=== PATIENT | male | born 1950 | race African-American/Black ===

== ENCOUNTER 2018-05-19 10:00 | Emergency (ER) | payer OTHER ==
[2018-05-19 10:13] VITALS: BP 130/70
--- NOTE | 2018-05-19 10:53 | ER Document Report ---
ED Hand/Wrist Injury - General Chief Complaint: Hand Pain Stated Complaint: FINGER INJURY Time Seen by Provider: 05/19/18 10:38 Mode of Arrival: Ambulatory Information source: Patient Notes: Patient is a 67-year-old male comes emergency room by being sent from [facility] for a avulsion laceration of the left ring finger pad and nail. Patient states that he was using a mandolin cutting vegetables yesterday evening around 8 PM and he did not have the hand guard and accidentally pushed too hard with the left hand and he took off a portion of the left ring finger pad and nail tip. He denies any other injuries and just received a tetanus shot from the [facility] about an hour ago. TRAVEL OUTSIDE OF THE [place] IN LAST 30 DAYS: No - HPI Injury to: Ring finger Onset: Yesterday Where: Home Timing: Constant Quality of pain: Achy Severity: Mild Pain Level: 1 Context: Laceration - Related Data Allergies/Adverse Reactions: No Known Allergies Allergy (Unverified 05/19/18 10:04) Past Medical History - General Information source: Patient - Social History Smoking Status: Never Smoker Cigarette use (# per day): No Chew tobacco use (# tins/day): No Smoking Education Provided: No Frequency of alcohol use: None Drug Abuse: None Family History: Reviewed & Not Pertinent Patient has suicidal ideation: No Patient has homicidal ideation: No - Past Medical History Cardiac Medical History: Reports: Hx Hypercholesterolemia, Hx Hypertension Endocrine Medical History: Reports: Hx Diabetes Mellitus Type 2 Renal/ Medical History: Denies: Hx Peritoneal Dialysis Review of Systems - Review of Systems Constitutional: No symptoms reported EENT: No symptoms reported Cardiovascular: No symptoms reported Respiratory: No symptoms reported Gastrointestinal: No symptoms reported Genitourinary: No symptoms reported Male Genitourinary: No symptoms reported Musculoskeletal: No symptoms reported Skin: Other - Laceration Hematologic/Lymphatic: No symptoms reported Neurological/Psychological: No symptoms reported -: Yes All other systems reviewed and negative Physical Exam - Vital signs Vitals: Temp Pulse Resp BP Pulse Ox 98.2 F 50 L 16 130/70 H 96 05/19/18 10:10 05/19/18 10:10 05/19/18 10:10 05/19/18 10:10 05/19/18 10:10 Interpretation: Bradycardic - Notes Notes: PHYSICAL EXAMINATION: GENERAL: This is a well-nourished well-developed 67-year-old male who is in no apparent distress on, physical examination. HEAD: Atraumatic, normocephalic. EYES: Pupils equal round and reactive to light, extraocular movements intact, sclera anicteric, conjunctiva are normal. NECK: Normal range of motion, supple LUNGS: Breath sounds clear to auscultation bilaterally and equal. No wheezes rales or rhonchi. HEART: Bradycardic rate and rhythm without murmurs ABDOMEN: Musculoskeletal: The area of concern is patient's left index finger distal tip on the lateral side of the pad and nail. Patient has a avulsion laceration caused by a mandolin which a sliced off portion of the vascular bed on the fingertip pad area. Bleeding is controlled currently. A slight portion of the distal nail tip has been avulsed as well but does not appear to be into the nail bed. The vascular bed that is exposed is not able to suture together will need prophylactic treatment with Surgicel. NEUROLOGICAL: Normal speech, normal gait. Normal sensory, motor exams PSYCH: Normal mood, normal affect. SKIN: Warm, Dry, normal turgor, no rashes or lesions noted. Course - Re-evaluation Re-evalutation: 05/19/18 12:06 And x-rays performed just to make sure there was no fracture of the distal tip of the tuft of the finger. I did not see bone on my examination but felt it was completed we were to add the x-ray. X-ray is negative for any kind of a fracture. At this time will patient's been sent home with Surgicel on top told to keep it there 48 hours then to remove it by soaking very generously and peeling very easily off. I have informed him that it turns to the skin top pitch black in as a normal finding after he gets off the Surgicel he can apply Band-Aid and some antibiotic ointment and finish his oral antibiotics. - Vital Signs Vital signs: Temp Pulse Resp BP Pulse Ox 98.2 F 50 L 16 130/70 H 96 05/19/18 10:10 05/19/18 10:10 05/19/18 10:10 05/19/18 10:10 05/19/18 10:10 Discharge - Discharge Clinical Impression: Laceration of finger Qualifiers: Encounter type: initial encounter Finger: ring finger Damage to nail status: with damage Foreign body presence: without foreign body Laterality: left Qualified Code(s): S61.315A - Laceration without foreign body of left ring finger with damage to nail, initial encounter Condition: Stable Disposition: HOME, SELF-CARE Instructions: Laceration Care ([facility]), Soap Cleansing ([facility]) Additional Instructions: As we discussed leave this dressing on for 48 hours. After 48 hours you can remove it by soaking very generously in water and then peeling very easily off. You will find the tip where you took off the skin will be pitch black that is normal finding. You may rinse in warm soapy water and apply antibiotic ointment and Band-Aid for the rest of the time. I am placing you on some oral antibiotics to cover the exposed area that has been there for the last several hours. Please take all the antibiotics. Also if you should have any concerns that it does not appear to be healing appropriately return to ER for a recheck. Prescriptions: Cephalexin Monohydrate [Keflex 500 mg Capsule] 500 mg PO Q6H 7 Days #28 capsule Forms: Return to Work [facility]errals[facility] [[facility]] - Follow up as needed
--- NOTE | 2018-05-19 11:56 | RADIOLOGY REPORT (SQ) ---
EXAM DESCRIPTION: FINGER LEFT COMPLETED DATE/TIME: 05/19/2018 11:16 am REASON FOR STUDY: Mandolin laceration fingertip COMPARISON: None. NUMBER OF VIEWS: Three views. TECHNIQUE: AP, lateral, and oblique images acquired of the left fourth finger. LIMITATIONS: None. FINDINGS: MINERALIZATION: Normal. BONES: No acute fracture or dislocation. No worrisome bone lesions. SOFT TISSUES: No soft tissue swelling. No foreign body. OTHER: No other significant finding. IMPRESSION: No significant findings. TECHNICAL DOCUMENTATION: JOB ID: [id number] [employer] [employer]- All Rights Reserved Reading location - IP/workstation name: [email or web address]
== END 2018-05-19 12:28 | disposition home or self-care (01) ==
LOC: ER 10:00
DX: S61.315A Laceration without foreign body of left ring finger with damage to nail, initial encounter (principal); M79.642 Pain in left hand; W27.4XXA Contact with kitchen utensil, initial encounter; Y93.G1 Activity, food preparation and clean up; I10 Essential (primary) hypertension; E11.9 Type 2 diabetes mellitus without complications
CPT/HCPCS: 99283

== ENCOUNTER 2019-12-02 07:19 | Emergency (ER) | payer OTHER, MEDICARE ==
--- NOTE | 2019-12-02 07:35 | ER Document Report ---
ED Medical Screen (RME) - General Chief Complaint: Weakness Stated Complaint: LEFT FACE NUMBNESS/ARM NUMBNESS Time Seen by Provider: 12/02/19 07:33 Primary Care Provider: GINGER BOSE [Primary Care Provider] - Follow up as needed Notes: 69-year-old male with chief complaint of left arm and left leg weakness and numbness that started last night while he was asleep. He states he went to bed at approximately midnight, he states he awoke at around 3 AM and he noticed the weakness in his arm. He states that this intermittently awoke him until he came in for evaluation now at approximately 7:30 AM. He denies headache, he denies any other complaints. History of hypertension, hyperlipidemia, type 2 diabetes TRAVEL OUTSIDE OF THE [place] IN LAST 30 DAYS: No - Related Data Allergies/Adverse Reactions: No Known Allergies Allergy (Unverified 05/19/18 10:04) Past Medical History - Social History Chew tobacco use (# tins/day): No Frequency of alcohol use: None Drug Abuse: None - Past Medical History Cardiac Medical History: Reports: Hx Hypercholesterolemia, Hx Hypertension Endocrine Medical History: Reports: Hx Diabetes Mellitus Type 2 Renal/ Medical History: Denies: Hx Peritoneal Dialysis Physical Exam - Vital signs Vitals: Temp 97.6 F 12/02/19 07:23 - Neurological Orientation: AAOx4 [place] Coma Scale Eye Opening: Spontaneous [place] Coma Scale Verbal: Oriented [place] Coma Scale Motor: Obeys Commands [place] Coma Scale Total: 15 Speech: Normal Cranial nerves: Normal Motor strength normal: RUE, RLE. 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 Sending to CAT scan immediately I have greeted and performed a rapid initial assessment of this patient. A comprehensive ED assessment and evaluation of the patient, analysis of test results and completion of the medical decision making process will be conducted by additional ED providers. - Vital Signs Vital signs: Temp Pulse Resp BP Pulse Ox 97.6 F 12/02/19 07:23 Doctor's Discharge - Discharge Referrals: LIDYA,GINGER [Primary Care Provider] - Follow up as needed
--- NOTE | 2019-12-02 07:57 | RADIOLOGY REPORT (SQ) ---
EXAM DESCRIPTION: XR CHEST 1 VIEW COMPLETED DATE/TME: 12/02/2019 07:33 CLINICAL HISTORY: 69 years, Male, left arm and leg weakness, CVA COMPARISON: None. NUMBER OF VIEWS: One TECHNIQUE: Upright AP view of the chest LIMITATIONS: None. FINDINGS: The lungs are clear. The heart is normal in size. There is no pneumothorax or pleural effusion. There is no intraperitoneal free air. There is no acute fracture. IMPRESSION: No acute cardiopulmonary abnormality. copyright 2010 [employer]- All Rights Reserved
--- NOTE | 2019-12-02 07:58 | RADIOLOGY REPORT (SQ) ---
EXAM: CT Head Without Intravenous Contrast EXAM DATE/TIME: 12/02/2019 07:36 CLINICAL HISTORY: The patient is 69 years old and is Male; left arm and leg weakness, CVA TECHNIQUE: Axial computed tomography images of the head/brain without intravenous contrast. Sagittal and coronal reformatted images were created and reviewed. This CT exam was performed using one or more of the following dose reduction techniques: automated exposure control, adjustment of the mA and/or kV according to patient size, and/or use of iterative reconstruction technique. COMPARISON: No relevant prior studies available. FINDINGS: BRAIN: Unremarkable. No obvious signs of acute infarct. No evidence of intracranial mass. No acute hemorrhage. VENTRICLES: Unremarkable. No ventriculomegaly. BONES/JOINTS: Unremarkable. No acute fracture. SOFT TISSUES: Unremarkable. SINUSES: Unremarkable as visualized. No acute sinusitis. MASTOID AIR CELLS: Unremarkable as visualized. No mastoid effusion. IMPRESSION: No acute intracranial findings.
[2019-12-02 08:01] LABS: ABSOLUTE EOSINOPHILS # (AUTO) 0.4 10^3/uL (0.0-0.6); ABSOLUTE LYMPHOCYTES (AUTO) 2.4 10^3/uL (0.5-4.7); ABSOLUTE MONOCYTES (AUTO) 0.6 10^3/uL (0.1-1.4); BASOPHILS % (AUTO) 0.9 % (0-2); EOSINOPHILS % (AUTO) 6.9 % (0-6); LYMPHOCYTES % (AUTO) 44.3 % (13-45); MEAN CORPUSCULAR HEMOGLOBIN 29.3 pg (27.0-33.4); MEAN CORPUSCULAR HGB CONC 35.7 g/dL (32.0-36.0); MEAN CORPUSCULAR VOLUME 82 fl (80-97); MONOCYTES % (AUTO) 11.4 % (3-13); PLATELET COUNT 212 10^3/uL (150-450); RED BLOOD COUNT 5.12 10^6/uL (4.35-5.55); RED CELL DISTRIBUTION WIDTH 15.5 % (11.5-14.0); SEGMENTED NEUTROPHILS % (AUTO) 36.5 % (42-78); TOTAL CELLS COUNTED % (AUTO) 100 %; WHITE BLOOD COUNT 5.4 10^3/uL (4.0-10.5)
[2019-12-02 08:08] LABS: INTERNATIONAL RATION (INR) 0.95; PARTIAL THROMBOPLASTIN TIME 27.8 SEC (23.5-35.8)
[2019-12-02 08:09] LABS: PROTHROMBIN TIME 12.7 SEC (11.4-15.4)
[2019-12-02 08:22] LABS: ALBUMIN 4.2 g/dL (3.5-5.0); ALKALINE PHOSPHATASE 55 U/L (38-126); ANION GAP 7 (5-19); ASPARTATE AMINO TRANSFERASE 25 U/L (17-59); BILIRUBIN,TOTAL 0.8 mg/dL (0.2-1.3); BLOOD UREA NITROGEN 19 mg/dL (7-20); CALCIUM 9.5 mg/dL (8.4-10.2); CARBON DIOXIDE 30 mmol/L (22-30); CHLORIDE 102 mmol/L (98-107); CREATINE KINASE 200 U/L (55-170); GLUCOSE 118 mg/dL (75-110); POTASSIUM 3.4 mmol/L (3.6-5.0); TOTAL PROTEIN 7.5 g/dL (6.3-8.2)
[2019-12-02 08:34] LABS: CREATINE KINASE MB 2.81 ng/mL (<4.55)
[2019-12-02 08:35] LABS: TROPONIN I < 0.012 ng/mL
--- NOTE | 2019-12-02 09:01 | ER Document Report ---
Entered by GAYATHRI MCCARTY SCRIBE 12/02/19 0811 Acting as scribe for:LAURA PATTERSON MD ED Neuro Symptoms/Deficit - General Chief Complaint: Weakness Stated Complaint: LEFT FACE NUMBNESS/ARM NUMBNESS Time Seen by Provider: 12/02/19 07:33 [facility] - Follow up as needed Mode of Arrival: Ambulatory Information source: Patient Notes: This 69 year old male patient presents to the emergency department today with complaints of left sided numbness, weakness, and altered sensation. Patient states he first noticed that his left shoulder "felt funny, like he slept on it wrong" when he woke up this morning. Patient also mentions that he has had numbness and tingling on the left side of his face around his eyes and lips, stating it felt like "[id number]". Patient states this is still present now but decreased from earlier. Patient states when he tried to walk he also noticed that he could barely move his left lower extremity. TRAVEL OUTSIDE OF THE [place] IN LAST 30 DAYS: No - Related Data Allergies/Adverse Reactions: No Known Allergies Allergy (Unverified 05/19/18 10:04) Past Medical History - General Information source: Patient - Social History Smoking Status: Never Smoker Cigarette use (# per day): No Chew tobacco use (# tins/day): No Frequency of alcohol use: None Drug Abuse: None Lives with: Spouse/Significant other Family History: Reviewed & Not Pertinent Patient has homicidal ideation: No - Past Medical History Cardiac Medical History: Reports: Hx Hypercholesterolemia, Hx Hypertension Past Surgical History: Reports: Hx Tonsillectomy, Other - Jaclyn fundoplication Review of Systems - Review of Systems Constitutional: No symptoms reported EENT: No symptoms reported Cardiovascular: No symptoms reported Respiratory: No symptoms reported Gastrointestinal: No symptoms reported Genitourinary: No symptoms reported Male Genitourinary: No symptoms reported Musculoskeletal: No symptoms reported Skin: No symptoms reported Hematologic/Lymphatic: No symptoms reported Neurological/Psychological: See HPI, Sensory change, Weakness - left sided, Numbness - left sided -: Yes All other systems reviewed and negative Physical Exam - Vital signs Vitals: Temp Pulse Resp BP Pulse Ox 97.6 F 61 18 166/85 H 98 12/02/19 07:23 12/02/19 07:23 12/02/19 07:23 12/02/19 07:23 12/02/19 07:23 - Notes Notes: Physical Exam: General: Alert, appears well. HEENT: Normocephalic. Atraumatic. PERRL. Extraocular movements intact. Oropharynx clear. Neck: Supple. Non-tender. Respiratory: No respiratory distress. Clear and equal breath sounds bilaterally. Cardiovascular: Regular rate and rhythm. Abdominal: Normal Inspection. Non-tender. No distension. Normal Bowel Sounds. Back: No gross abnormalities. Extremities: Moves all four extremities. Upper extremities: see Lower extremities: Normal inspection. No edema. Normal ROM. Neurological: Normal cognition. AAOx4. Normal speech. Decreased sensation of the left face and left hand. Unable to completely close the left hand grasp for helper driver strength testing. Is able to left arm off the bed but the left wrist is floppy and he is unable to extend his left arm. Limited finger to nose testing, is able to get the side of his finger to his nose due to the floppiness of the wrist. Left leg can be lifted about 4 inches off the bed but he cannot hold it up in the air. No facial asymmetry. No slurring of speech. No deviation with tongue protrusion. Psychological: Normal affect. Normal Mood. Skin: Warm. Dry. Normal color. Course - Re-evaluation Re-evalutation: 12/02/19 10:24 The patient has been for MRI and had an MRA done due to acute infarction seen on MRI. At this time the patient is doing much better, his neurological deficits have almost completely resolved. The coordination to his left upper extremity is almost back to normal as is the strength. The strength in the left lower extremity is almost back to normal. 12/02/19 11:27 While I was discussing the transfer with the patient, he reports that he did have an episode about a week ago in which he became very dizzy, went back into the house and remembers leaning into the wall on his left side having trouble walking and this lasted for about 5 minutes. 12/02/19 13:44 Transport is here to take the patient to [facility]. He is alert and smiling, continues to have good function to his left side with only mild weakness demonstrated at this time. Vital signs are stable. He is stable for transfer. - Vital Signs Vital signs: Temp Pulse Resp BP Pulse Ox 97.6 F 55 L 17 149/85 H 100 12/02/19 07:23 12/02/19 07:48 12/02/19 07:48 12/02/19 07:48 12/02/19 08:07 - Laboratory Result Diagrams: 12/02/19 07:55 12/02/19 07:55 Laboratory results interpreted by me: 12/02/19 12/02/19 07:55 07:57 RDW 15.5 H Eos % (Auto) 6.9 H Seg Neutrophils % 36.5 L POC Glucose 115 H - Diagnostic Test Radiology reviewed: Image reviewed, Reports reviewed - MRI of the head shows ar eas of acute infarction involving the right frontoparietal, posterior parietal, and occipital lobes. These areas involve the right MCA and ACQUISITIONS LIBRARIAN distributions. The MRA shows a normal [place]. - EKG Interpretation by Me EKG shows normal: Sinus rhythm, [place], Intervals. abnormal: QRS Complexes - Questionable old posterior IN pattern, ST-T Waves - Borderline inferior T abnormalities Rate: Normal - 59 Rhythm: NSR When compared to previous EKG there are: Previous EKG unavailable ED Alteplase Inc/Exc Criteria - Inclusion Criteria: 1: Patient presented to ED within 3 hours of acute ischemic stroke symptom onset ? -: No 2: Did baseline CT exclude intracranial hemorrhage and/or other risk factors? -: Yes 3: Is the age of the patient 18 years of age or greater? -: Yes : If any of the above questions are answered "NO" then stop, patient is not a candidate for Alteplase, : If all of the above questions are answered "YES" then continue with Exclusion Criteria. - Exclusion Criteria: 1: Is there evidence of intracranial hemorrhage on baseline CT? 2: Is there suspicion of subarachnoid hemorrhage (even if CT negative)? 3: Is there a history of serious head trauma, recent previous stroke or IN within 3 months? 4: Does the patient have a clinical presentation consistent with IN or post-IN pericarditis? 5: Is there history of intracranial hemorrhage? 6: On repeated measurement is Systolic BP greater than 185mmHg or Diastolic BP greater that 110 mmHg and is aggressive treatment needed to reduce blood pressure to these limits (e.g. constant infusion of an anti-hypertensive)? 7: Did the patient awake with stroke symptoms? 8: Has the patient had a lumbar puncture or an arterial puncture at a non- compressile site within 7 days? 9: With in the last 14 days did the patient have surgery or major trauma? 10: Is the patient or less than 2 weeks? 11: Was there any active bleeding or acute trauma? 12: Does the patient have intracranial neoplasm, arteriovenous malformation or aneurysm? 13: Does the patient have abnormal glucose (less than 50 or greater than 400mg/d l)? Record glucose in Comment. 14: Patient has rapidly improving symptoms at the time Alteplase is to be Administered. -: Yes 15: Does the patient have any risks for bleeding, including but not limited to: a.: Current use of Coumadin with PT greater than 15 seconds or INR greater than 1.7. b.: Current use of Pradaxa (Dabigatran). c.: Heparin administereed within the past 48 hours and PTT elevated. d.: Platelet count less than 100,000/mm. e.: Major surgery or serious trauma within 14 days. f.: Gastrointestinal or gynecological urinary bleeding within 14 days. g.: Myocardial Infarction (IN) within 3 months. : If the answer to any of the above questions is "YES" then stop, the patient is not a candidate for Alteplase. : If the answer to all of the above questions is "NO" then the patient may be eligible for the Administration of Alteplase. : If the patient is noted to have seizure activity at onset of Stroke symptoms; Consult Neurologist for further evaluation. - The patient is: -: Included and is eligible to receive Alteplase. *Initiate bed placement at higher level of care* Reviewed risks & benefits of thrombolytic therapy: I have reviewed the risks and benefits of thrombolytic therapy with the patient and/or his/her family. -: Excluded and not eligible to receive Alteplase for the above exclusions. -: Excluded and not eligible to receive Alteplase for other reasons (specify in comments): - Diagnosis of TIA: -: Patient presented with transient symptoms that are now resolved and no other neurologic findings are currently present. List symptoms in comments. -: Patient is NOT a candidate for tPA. -: ____(put name in comment) has been consulted for admission and continued evaluation of risk factor assessment. ED NIH Stroke Scale - NIH Stroke Scale *: 1. NIH scale should be completed with appropriate accompanying assessment tools. *: 2. The NIH should reflect what the patient is capable of doing and should not be coached by the clinician. 1a. Level of Consciousness: 0=Alert;keenly responsive -: 1=Drowsy -: 2=Obtunded -: 3=Coma/unresponsive or reflex to noxious stimuli. 1a. Responses: 0 1b. Orientation Questions: a. What month is it? -: b. How old are you? -: 0=Answers both questions correctly. -: 1=Answers one question correctly or patient is intubated or has orotracheal trauma. -: 2=Answers neither question correctly. 1b. Responses: 0 1c. Response to commands: a. Open and close eyes? -: b. Special Needs Teacher and release hand? -: Credit is given despite weakness. Demonstration of task is permitted. Substitute command if hands cannot be used. -: 0=Performs both tasks correctly -: 1=Performs one task correctly -: 2=Performs neither task correctly 1c. Responses: 0 2. Gaze: Establish eye contact and instruct patient to "Follow my finger" -: 0=Normal -: 1=Partial gaze palsy. Gaze is abnormal in one or both eyes, but where forced deviation or total gaze paresis is not present. -: 2=Forced deviation or total gaze paresis. 2. Responses: 0 3. Visual [place]: Sees fingers in all four quadrants. -: 0=No visual loss. -: 1=Partial hemianopsia. -: 2=Complete hemianopsia. -: 3=Bilateral hemianopsia (including Cortical blindness) 3. Responses: 0 4. Facial Movement: Instruct patient to: -: a. Show me your teeth -: b. Raise your eyebrows -: c. Close your eyes -: d. Smile -: 0=Normal symmetrical movement -: 1=Minor paralysis (flattened nasolabial fold, asymmetry on smiling). -: 2=Partial paralysis (total or near total paralysis of lower face). -: 3=Complete paralysis of upper and lower face 4. Responses: 0 5. Motor functions (left arm): Alternate sides and extend each arm with palms down (90 degrees if sitting or 45 degrees for supine). -: 0=No drift;limb holds for full 10 seconds. -: 1=Drift; limb holds but drifts down before full 10 seconds, but does not hit bed. -: 2=Some effort against gravity; limb cannot get to or maintain position. -: 3=No effort against gravity; limb falls. -: 4=No movement. -: UN=Amputation, joint fusion, explain in comments. 5. Responses (left arm): 2 5. Motor Functions (right arm): Alternate sides and extend each arm with palms down (90 degrees if sitting or 45 degrees for supine). -: 0=No drift;limb holds for full 10 seconds. -: 1=Drift; limb holds but drifts down before full 10 seconds, but does not hit bed. -: 2=Some effort against gravity; limb cannot get to or maintain position. -: 3=No effort against gravity; limb falls. -: 4=No movement. -: UN=Amputation, joint fusion, explain in comments. 5. Responses (right arm): 0 6. Motor Functions (left leg): With patient lying supine, alternate sides and extend each leg (30 degrees always while supine). -: 0=No drift, leg holds position for full 5 seconds -: 1=Drift; leg falls before full 5 seconds but does not hit bed. -: 2=Some effort against gravity, leg falls to bed but some effort against gravity. -: 3=No effort against gravity, leg falls to bed immediately. -: 4=No movement. -: UN=Amputation, joint fusion; explain in comments. 6. Responses (left leg): 2 6. Motor Functions (right leg): With patient lying supine, alternate sides and extend each leg (30 degrees always while supine). -: 0=No drift, leg holds position for full 5 seconds -: 1=Drift; leg falls before full 5 seconds but does not hit bed. -: 2=Some effort against gravity, leg falls to bed but some effort against gravity. -: 3=No effort against gravity, leg falls to bed immediately. -: 4=No movement. -: UN=Amputation, joint fusion; explain in comments. 6. Responses (right leg): 0 7. Limb Ataxia: With eyes open instruct patient to: -: a. "Touch your finger to your nose". -: b. "Touch your heel to your whyte" -: 0=Absent -: 1=Present in one limb. -: 2=Present in two limbs. -: UN=Amputation or joint fusion; explain in comments. 7. Responses: 2 7. If ataxia present choose as appropriate: Left arm, Left leg 8. Sensory: Test sensation using pinprick or noxious stimuli. Test as many body parts as possible. -: 0=Normal;no sensory loss -: 1=Mile to moderate sensory loss (patient feels pin prick but is less sharp on affected side). -: 2=Severe or total sensory loss. 8. Responses: 1 9. Best Language: Instruct patient to: -: a. "Describe what you see in this picture." -: b. "Name the items in this picture." -: c. "Read these sentences." -: 0=No aphasia, normal -: 1=Mild to moderate aphasia. -: 2=Severe aphasia -: 3=[place], global aphasia, no usable speech or auditory comprehension. 9. Responses: 0 10. Articulation, Dysarthia: Instruct patient to: -: "Read these words" or "Repeat these words" -: 0=Normal -: 1=Mild to moderate; patient may slur some words but can be understood without difficulty. -: 2=Severe; patients speech so slurred as to be unintelligible in the absence of dysphasia. -: UN=Intubated or other physical barrier, explain in comments. 10. Responses: 0 11. Extinction or inattention: 0=No abnormality -: 1= Visual, tactile, auditory, spatial, or personal inattention or extinction to bilateral simulation in one or the sensory modalities. -: 2=Profound harshil-inattention or harshil-inattention to more than one modality; does not recognize own hand. 11. Responses: 0 Total Score: 7 Discharge - Discharge Clinical Impression: Multiple cerebral infarctions Condition: Stable Disposition: [facility]: [facility] [[facility]] - Follow up as needed I personally performed the services described in the documentation, reviewed and edited the documentation which was dictated to the scribe in my presence, and it accurately records my words and actions.
--- NOTE | 2019-12-02 10:21 | RADIOLOGY REPORT (SQ) ---
EXAM DESCRIPTION: MRA HEAD WITHOUT IMAGES COMPLETED DATE/TIME: 12/02/2019 9:54 am REASON FOR STUDY: CVA COMPARISON: None. TECHNIQUE: Axial 3-D [id number] acquisition imaging performed through the brain in the area of t he [place] of [place]. Images reformatted using 3-D MIPS. LIMITATIONS: None. FINDINGS: SOURCE IMAGES: No unexpected findings on source images. No large masses. 3-D MIP: No aneurysm. No occlusions. No significant stenosis. OTHER: No other significant finding. IMPRESSION: NORMAL MRA OF [place]. TECHNICAL DOCUMENTATION: JOB ID: [id number] 2010 [employer]- All Rights Reserved Reading location - IP/workstation name: [email or web address] [email or web address]
--- NOTE | 2019-12-02 10:22 | RADIOLOGY REPORT (SQ) ---
EXAM DESCRIPTION: MRI HEAD WITHOUT IMAGES COMPLETED DATE/TIME: 12/02/2019 9:54 am REASON FOR STUDY: Left-sided weakness with paresthesias COMPARISON: Same day CT TECHNIQUE: Multiplanar imaging includes non-contrasted T1, T2, FLAIR, and diffusion with ADC map seq uences. Images stored on PACS. LIMITATIONS: None. FINDINGS: ANATOMY: No anomalies. Normal vascular flow voids. Pituitary fossa normal. CSF SPACES: Normal in size and contour. No hemorrhage. CEREBRUM: Sulci and gyri normal in size and contour. Scattered areas of periventricular and subcorti ramy FLAIR signal hyperintensity, nonspecific but likely sequelae of microangiopathic disease. Diffus ion imaging demonstrates area of restricted diffusion with decreased corresponding signal on the ADC map involving the right occipital lobe compatible with acute infarct (series 7, image 13). There is a smaller adjacent area involving the cortex within the right occipital lobe (series 7, image 11). F ew additional areas of cortical diffusion signal abnormality involving the right frontal parietal lob e (series 7, image 21) and right posterior parietal lobe (series 7, image 21). No significant mass e ffect or midline shift. No evidence of intracranial hemorrhage. Normal white matter signal on FLAIR imaging. No extraaxial fluid collection. POSTERIOR FOSSA: No signal alteration. No hemorrhage. No edema, masses or mass effect. Internal timothy tory canals, cerebello-pontine angles, mastoids normal. DIFFUSION IMAGING: As above. ORBITS: No masses. Globes normal. PARANASAL SINUSES: No fluid levels. Mucosa normal. OTHER: No other significant finding. IMPRESSION: 1. Areas of acute infarction involving the right frontoparietal, posterior parietal and occipital lobes as detailed above. No significant mass effect, midline shift or intracranial hemorr brenton. 2. Additional nonspecific white matter changes, likely sequelae of microangiopathic disease. EVIDENCE OF ACUTE STROKE: YES. Right MCA and CORPORATE CLAIMS EXAMINER Pertinent positive or negative findings of the imaging study reported as a CRITICAL EXAM to LAURA PATTERSON MD at10:15 on 12/02/2019. Category of Critical Exam: Acute intracranial infarct. TECHNICAL DOCUMENTATION: JOB ID: [id number] 2010 [employer]- All Rights Reserved Reading location - IP/workstation name: [email or web address]
[2019-12-02 13:30] VITALS: BP 160/85
--- NOTE | 2019-12-02 23:30 | EKG REPORT ---
SEVERITY:- ABNORMAL ECG - SINUS RHYTHM PROBABLE POSTERIOR INFARCT BORDERLINE T ABNORMALITIES, INFERIOR LEADS : Confirmed by: Prasad Morgan 02-Dec-2019 23:29:30
== END 2019-12-02 13:30 | disposition short-term general hospital (02) ==
LOC: ER 07:19
DX: I63.9 Cerebral infarction, unspecified (principal); G81.94 Hemiplegia, unspecified affecting left nondominant side; R20.0 Anesthesia of skin; R20.2 Paresthesia of skin; I10 Essential (primary) hypertension; R29.707 NIHSS score 7
CPT/HCPCS: 36415; 70450; 70544; 70551; 71045; 80053; 82550; 82553; 82962; 84484; 85025; 85610; 85730; 93005; 93010; 99285